=== PATIENT | female | born 1960 | race Caucasian/White ===

== ENCOUNTER 2021-04-13 12:56 | Outpatient (CLI) | payer OTHER | END 2021-04-13 12:57 | disposition home or self-care (01) | LOC: BICULT 12:56 | PROVIDERS: ATTEND Family Medicine | DX: I88.9 Nonspecific lymphadenitis, unspecified (principal) | CPT/HCPCS: 76999 ==

== ENCOUNTER 2022-02-25 11:37 | Outpatient (CLI) | payer OTHER ==
[2022-02-25 13:41] LABS: #Basophils 0.1 10x3/uL (0.0-0.2); #Eosinphils 0.2 10x3/uL (0.0-0.5); #Monocytes 0.6 10x3/uL (0.0-1.1); #Neutrophils 6.1 10x3/uL (1.5-8.4); %Basophils 0.7 % (0.0-2.0); %Eosinophils 2.6 % (0.0-6.0); %Monocytes 6.3 % (0.0-10.0); %Neutrophils 70.2 % (40.0-75.0); Hemoglobin 13.9 g/dL (12.0-15.5); Mean Corpuscular HGB CONC 32.6 g/dL (32.0-36.0); Mean Corpuscular Hemoglobin 29.5 pg (27.0-33.0); Mean Corpuscular Volume 90.4 fl (81.6-98.3); Mean Platelet Volume 11.3 fl (7.4-10.4); Platelet Count 345 10x3/uL (150-450); RBC Distribution Width 12.7 % (11.5-14.5); Red Blood Cell (RBC) Count 4.71 10x6/uL (3.90-5.03); White Blood Cell (WBC) Count 8.7 10x3/uL (3.5-10.5)
[2022-02-25 13:52] LABS: Anion Gap 13 mmol/L (10-20); BUN (Urea Nitrogen) 14 mg/dL (9.8-20.1); Calc. Creatinine Clearance 0 mL/min (70-130); Calcium 8.9 mg/dL (7.8-10.44); Carbon Dioxide 23 mmol/L (23-31); Chloride 112 mmol/L (98-107); Estimated GFR 55; Glucose 171 mg/dL (80-115); Potassium 4.4 mmol/L (3.5-5.1); Sodium 144 mmol/L (136-145)
== END 2022-02-25 11:38 | disposition home or self-care (01) ==
LOC: LABBT 11:37
PROVIDERS: ATTEND Otolaryngology Plastic Surgery within the Head & Neck
DX: Z01.818 Encounter for other preprocedural examination (principal); J01.91 Acute recurrent sinusitis, unspecified; J34.3 Hypertrophy of nasal turbinates; J34.89 Other specified disorders of nose and nasal sinuses; J30.9 Allergic rhinitis, unspecified; Z20.822 Contact with and (suspected) exposure to COVID-19
CPT/HCPCS: 80048; 85025; 87811; 93005; 93010

== ENCOUNTER 2022-03-02 06:13 | Day surgery (SDC) | payer OTHER ==
[2022-02-28 15:24] VITALS: BMI 29.5
[2022-03-02] MEDS ORDERED: Oxymetazoline HCl 0.05% (30 ML BOT) ONE ×2 (06:50→08:09)
[2022-03-02] MEDS ORDERED: Lidocaine 0.5%/Epinephrine 1:200,000 50 ml Vial ONE (08:09)
[2022-03-02] MEDS ORDERED: Bacitracin Zinc Ointment 30 gm TUBE ONE (08:09)
[2022-03-02] MEDS ORDERED: fentaNYL Citrate/PF 100 MCG/2 ML SYRINGE ONE (08:14)
[2022-03-02] MEDS ORDERED: Ondansetron PF 4 MG/2 ML Vial ONE (08:39)
[2022-03-02] MEDS ORDERED: Lidocaine 1% PF 5 ML VIAL ONE (08:39)
[2022-03-02] MEDS ORDERED: PROPOFOL 200 MG/20 ML VIAL ONE (08:39)
[2022-03-02] MEDS ORDERED: Dexamethasone 20 MG/5 ML VIAL ONE (08:39)
== END 2022-03-02 10:28 | disposition home or self-care (01) ==
LOC: SDC 06:13
PROVIDERS: ATTEND Otolaryngology Plastic Surgery within the Head & Neck
PROC: 09TL0ZZ Resection of Nasal Turbinate, Open Approach (ICD-10-PCS; principal; 2022-03-02)
PROC: 09QK0ZZ Repair Nasal Mucosa and Soft Tissue, Open Approach (ICD-10-PCS; principal; 2022-03-02)
DX: J34.89 Other specified disorders of nose and nasal sinuses (principal); G47.33 Obstructive sleep apnea (adult) (pediatric); J34.3 Hypertrophy of nasal turbinates; J01.91 Acute recurrent sinusitis, unspecified; J30.9 Allergic rhinitis, unspecified; I10 Essential (primary) hypertension; E78.5 Hyperlipidemia, unspecified; E11.9 Type 2 diabetes mellitus without complications; G25.81 Restless legs syndrome; Z87.891 Personal history of nicotine dependence; Z79.84 Long term (current) use of oral hypoglycemic drugs; Z79.890 Hormone replacement therapy; Z79.899 Other long term (current) drug therapy; Z88.2 Allergy status to sulfonamides
CPT/HCPCS: 36416; J1100; J2001; J2405; J2704